=== PATIENT | male | born 1965 | race Caucasian/White ===

== ENCOUNTER 2020-10-31 21:01 | Emergency (ER) | payer BC ==
--- NOTE | 2020-10-31 21:25 | EDM.PDOC ---
ED HPI GENERAL MEDICAL PROBLEM - General Chief Complaint: General Stated Complaint: L. Arm Injury Time Seen by Provider: 10/31/20 21:05 Source of Information: Reports: Patient History Limitations: Reports: No Limitations - History of Present Illness INITIAL COMMENTS - FREE TEXT/NARRATIVE: Pérez is a 55 year old male who presents to ER with complaints of left wrist pain. Was working today and a wench came back and hit him. Happened about 3 hours ago. Has pain with flexion. Is able to move it laterally and medially. Had a small puncture wound to wrist but clotted easily. Did swell almost immediately after it happened. 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 Onset: Today Duration: Hour(s):, Constant Location: Reports: Upper Extremity, Left Quality: Reports: Throbbing Severity: Moderate Improves with: Reports: Rest Worsens with: Reports: Movement Context: Reports: Trauma Associated Symptoms: Reports: No Other Symptoms l arm Pain Score (Numeric/FACES): 6 - Related Data Allergies Allergy/AdvReac Type Severity Reaction Status Date / Time No Known Allergies Allergy Verified 10/31/20 21:03 Home Meds: Home Meds Aspirin [Halfprin] 81 mg PO DAILY 06/11/13 [History] Cholecalciferol (Vitamin D3) [Vitamin D] 1,000 unit PO DAILY 06/11/13 [History] Lindsay-3 Fatty Acids [Fish Oil] 500 mg PO DAILY 06/11/13 [History] Past Medical History Cardiovascular History: Reports: High Cholesterol Social & Family History - Tobacco Use Tobacco Use Status *Q: Unknown Ever Used Tobacco ED ROS GENERAL - Review of Systems Review Of Systems: See Below Musculoskeletal: Reports: Joint Pain Skin: Reports: Bruising, Wound Neurological: Reports: No Symptoms ED EXAM, GENERAL - Physical Exam Exam: See Below Exam Limited By: No Limitations General Appearance: Alert, WD/WN, No Apparent Distress Extremities: Limited Range of Motion, Other (Patient does have swelling to his left wrist. Small puncture wound that is clotted at this point. Pain with flexion of wrist. Does have good abduction and adduction of wrist. Palmar grasp does cause some discomfort. ) Course - Vital Signs Last Recorded V/S: Last Vital Signs Temp 97.5 F 10/31/20 21:12 Pulse 71 10/31/20 21:12 Resp 16 08/13/21 21:12 BP 167/91 H 10/31/20 21:12 Pulse Ox 98 10/31/20 21:12 - Orders/Labs/Meds Orders: Active Orders 24 hr Category Date Time Status Wrist Comp Min 3V Lt [CR] Stat Exams 10/31/20 21:18 Ordered - Re-Assessments/Exams Free Text/Narrative Re-Assessment/Exam: 10/31/20 21:39 Xrays negative. patient advised to keep ice on tonight. Elevate as able. Compress with reji bandage as needed. Departure - Departure Time of Disposition: 21:40 Disposition: Home, Self-Care 01 Condition: Good Clinical Impression: Contusion of wrist, left - Discharge Information *PRESCRIPTION DRUG MONITORING PROGRAM REVIEWED*: No *COPY OF PRESCRIPTION DRUG MONITORING REPORT IN PATIENT TOD: No Instructions: Contusion, [id number] Forms: ED Department Discharge Additional Instructions: 1. Elevate left wrist as able 2. Ice to wrist frequently tonight, switch to heat tomorrow 3. Ibuprofen for discomfort 4. We will notify you if any concerns with xray report as needed 5. Call with any concerns or questions Sepsis Event Note (ED) - Focused Exam Vital Signs: Vital Signs Temp Pulse Resp BP Pulse Ox 10/31/20 21:12 97.5 F 71 16 167/91 H 98 - My Orders Last 24 Hours: My Active Orders 10/31/20 21:18 Wrist Comp Min 3V Lt [CR] Stat - Assessment/Plan Last 24 Hours: My Active Orders 10/31/20 21:18 Wrist Comp Min 3V Lt [CR] Stat
[2020-10-31] MEDS ORDERED: Diphtheria,Pertussis(Acell),Tetanus Vaccine 0.5 ML Syringe IM ONE (21:49)
== END 2020-10-31 21:57 | disposition home or self-care (01) ==
LOC: CC.ED 21:01
DX: S60.212A Contusion of left wrist, initial encounter (principal); E78.00 Pure hypercholesterolemia, unspecified; Z23 Encounter for immunization; Z79.82 Long term (current) use of aspirin; Z79.899 Other long term (current) drug therapy; W22.8XXA Striking against or struck by other objects, initial encounter
CPT/HCPCS: 73110-LT; 90471; 90715; 99283-25

== ENCOUNTER → 2021-04-16 | Day surgery (SDC) | payer BC ==
[~2021-04-16] MED LIST: Flumazenil 0.1 MG/ML 10 ML MDV ONE; Ketorolac 30 MG/ML SDV ONE; Labetalol 100 MG/20 ML MDV ONE; Lactated Ringers 1,000 ML IV SCH; Lidocaine 0.5% 50 ML SDV ONE; Lidocaine 1% with EPINEPHrine 1:100,000 20 ML MDV ONE; Lidocaine 1% with EPINEPHrine 1:100,000 20 ML MDV SUBCUT ONE; Midazolam 1 MG/ML 2 ML SDV ONE; Propofol 200 MG/20 ML SDV ONE; fentaNYL 100 MCG/2 ML SDV ONE
== END ==
LOC: CC.SDS 09:26
PROVIDERS: ATTEND Surgery
DX: D18.01 Hemangioma of skin and subcutaneous tissue (principal); M67.432 Ganglion, left wrist; I10 Essential (primary) hypertension; Z79.82 Long term (current) use of aspirin; Z79.899 Other long term (current) drug therapy
CPT/HCPCS: J7120

== ENCOUNTER → 2021-04-17 | Day surgery (SDC) | payer BC ==
[~2021-04-17] MED LIST changes: -Ketorolac 30 MG/ML SDV ONE; -Labetalol 100 MG/20 ML MDV ONE; -Lidocaine 0.5% 50 ML SDV ONE; -Lidocaine 1% with EPINEPHrine 1:100,000 20 ML MDV ONE; -Lidocaine 1% with EPINEPHrine 1:100,000 20 ML MDV SUBCUT ONE
== END ==
LOC: CC.SDS 09:18
PROVIDERS: ATTEND Family Medicine
DX: Z12.11 Encounter for screening for malignant neoplasm of colon (principal); D12.0 Benign neoplasm of cecum; K57.30 Diverticulosis of large intestine without perforation or abscess without bleeding; I10 Essential (primary) hypertension; E66.01 Morbid (severe) obesity due to excess calories; Z79.82 Long term (current) use of aspirin; Z79.899 Other long term (current) drug therapy; Z80.0 Family history of malignant neoplasm of digestive organs; Z68.41 Body mass index [BMI] 40.0-44.9, adult
CPT/HCPCS: 00812; J2250; J2704; J3010; J7120